=== PATIENT | male | born 2000 | race Caucasian/White ===

== ENCOUNTER 2018-09-10 18:54 | Emergency (ER) | payer MEDICAID ==
[~2018-09-10] VITALS: Ht 195.6 cm; Wt 140.6 kg
[2018-09-10 19:11] VITALS: BP_SYST 154
[2018-09-10] MEDS ORDERED: DEXAMETHASONE SOD PHOSPHATE 10 MG/ML VIAL IM ONE (20:00)
[2018-09-10] MEDS ORDERED: KETOROLAC TROMETHAMINE 60 MG/2 ML VIAL IM ONE (20:00)
[2018-09-10 20:31] VITALS: BP_SYST 142
== END 2018-09-10 20:31 | disposition home or self-care (01) ==
LOC: SED 18:54
DX: J02.9 Acute pharyngitis, unspecified (principal); R03.0 Elevated blood-pressure reading, without diagnosis of hypertension; F17.200 Nicotine dependence, unspecified, uncomplicated
CPT/HCPCS: 96372; 99283; J1100; J1885